=== PATIENT | female | born 1995 | race Two or more races ===

== ENCOUNTER 2017-06-13 18:27 | Emergency (ER) | payer BC ==
[~2017-06-13] VITALS: Ht 167.6 cm; Wt 56.7 kg
[2017-06-13] MEDS ORDERED: SUMA50TA PO (18:31)
[2017-06-13] MEDS ORDERED: diphenhydrAMINE HCL 50 MG/ML VIAL IV ONE (20:30)
[2017-06-13] MEDS ORDERED: METOCLOPRAMIDE HCL 10 MG/2 ML VIAL IV ONE (20:30)
[2017-06-13] MEDS ORDERED: IV NS 0.9% 1,000 ML BAG IV ONE (20:30)
[2017-06-13] MEDS ORDERED: ONDANSETRON HCL/PF 4 MG/2 ML VIAL IVP ONE (20:30)
[2017-06-13] MEDS ORDERED: diphenhydrAMINE HCL 50 MG/ML VIAL ONE (20:47)
[2017-06-13] MEDS ORDERED: ONDANSETRON HCL/PF 4 MG/2 ML VIAL ONE (20:47)
[2017-06-13] MEDS ORDERED: METOCLOPRAMIDE HCL 10 MG/2 ML VIAL ONE (20:47)
[2017-06-13] MEDS ORDERED: KETOROLAC TROMETHAMINE INJ 30 MG/ML VIAL IV ONE (22:00)
[2017-06-13] MEDS ORDERED: KETOROLAC TROMETHAMINE INJ 30 MG/ML VIAL ONE (22:05)
[2017-06-13 22:30] VITALS: BP 115/86
== END 2017-06-13 22:32 | disposition home or self-care (01) ==
LOC: ER 18:29
DX: G43.109 Migraine with aura, not intractable, without status migrainosus (principal)
CPT/HCPCS: 70450; 96361; 96374; 96375; 99284; A4606; J1200; J1885; J2405; J2765; J7050; Z7610